=== PATIENT | female | born 1990 | race Caucasian/White ===

== ENCOUNTER → 2019-03-14 | Outpatient (CLI) | payer OTHER ==
[~2019-03-14] MED LIST: CIPRO250 MG PO; FLEXERIL10 MG PO; HYDROCODONE BIT1 T11 PO; IRON325 M1 PO; MOTRIN800 MG PO; PRENATAL1 TA2 PO; SYNTHROID0.137 MG PO; Synthroid,Lev200 MCG PO; VITAMIN C500 M4 PO; VITAMIN D32000 IU PO; VITAMIN D50000 I3 PO; ZYRTEC10 MG PO
[2019-03-14 13:03] LABS: ALBUMIN 3.5 gm/dl (3.1-4.5); BUN 11 mg/dl (7-24); CHLORIDE 107 mmol/L (98-107); CREATININE 0.68 mg/dL (0.55-1.02); FREE T4 1.46 ng/dl (0.76-1.46); IRON 97 ug/dL (50-170); POTASSIUM 3.5 mmol/L (3.5-5.1); SODIUM 141 mmol/L (136-145)
[2019-03-14 13:08] LABS: THYROID STIM HORMONE (HS) 0.213 uIU/ml (0.358-4.75)
[2019-03-15 08:05] LABS: THYROID PEROXIDASE (TPO) AB 8 IU/mL (0-34)
[2019-03-15 14:04] LABS: THYROGLOBULIN ANTIBODY <1.0 IU/mL (0.0-0.9)
== END | disposition home or self-care (01) ==
LOC: LAB 12:07
PROVIDERS: Internal Medicine
DX: E03.9 Hypothyroidism, unspecified (principal); E74.39 Other disorders of intestinal carbohydrate absorption; E55.9 Vitamin D deficiency, unspecified; E61.1 Iron deficiency; C73 Malignant neoplasm of thyroid gland

== ENCOUNTER 2019-03-27 17:06 | Emergency (ER) | payer OTHER ==
[~2019-03-27] VITALS: Ht 160 cm; Wt 78.9 kg
[2019-03-27 17:47] LABS: BASO % 0.5 % (0.0-1.0); EOS # 0.3 10*3/uL (0.0-0.4); EOS % 3.6 % (1.0-4.0); HEMATOCRIT 41.2 % (37.0-47.0); HEMOGLOBIN 13.6 g/dl (12.0-16.0); LYMPH # 2.3 10*3/uL (1.3-4.4); LYMPH % 27.8 % (27.0-41.0); MEAN CELL VOLUME 84.1 fl (81.0-99.0); MEAN CORPUSCULAR HGB 27.8 pg (27.0-31.0); MEAN PLATELET VOLUME 10.4 fl (9.6-12.3); MONO # 0.9 10*3/uL (0.1-1.0); MONO % 10.7 % (3.0-9.0); NEUT # 4.8 10*3/uL (2.3-7.9); NEUT % 57.2 % (47.0-73.0); PLATELET COUNT AUTOMATED 256 10*3/uL (130-400); RED CELL DISTRI WIDTH 13.9 % (0-14.5); WHITE BLOOD COUNT 8.4 10*3/uL (4.8-10.8)
[2019-03-27 18:02] LABS: ALBUMIN 3.4 gm/dl (3.1-4.5); ALKALINE PHOSPHATASE 83 U/L (45-117); BUN 17 mg/dl (7-24); CHLORIDE 109 mmol/L (98-107); CREATININE 0.88 mg/dL (0.55-1.02); LIPASE 203 U/L (73-393); POTASSIUM 3.8 mmol/L (3.5-5.1); SGOT/AST 7 IU/L (3-35); SGPT/ALT 17 U/L (12-78); SODIUM 138 mmol/L (136-145); TOTAL PROTEIN 7.5 gm/dL (6.4-8.2)
[2019-03-27 18:13] LABS: TROPONIN I < 0.015 ng/ml (<0.045)
[2019-03-27 18:20] LABS: ACT PARTIAL THROMBO TIME 25.6 SECONDS (20.0-32.1); INTERNATIONAL NORM RATIO 0.9 (2.0-3.5)
[2019-03-27 18:33] LABS: BILIRUBIN NEGATIVE (NEGATIVE); BLOOD TRACE-INTACT (NEGATIVE); CLARITY CLEAR (CLEAR); COLOR YELLOW (YELLOW); GLUCOSE NEGATIVE (NEGATIVE); KETONE NEGATIVE (NEGATIVE); LEUKO ESTERASE 1+ (NEGATIVE); NITRITE NEGATIVE (NEGATIVE); SPECIFIC GRAVITY 1.025 (1.005-1.030); UROBILINOGEN 0.2 E.U./dl (0.2-1.0)
[2019-03-27 18:45] LABS: BACTERIA 2+
[2019-03-27 18:46] LABS: MUCOUS 1+
[2019-03-27] MEDS ORDERED: CEPHALEXIN500 M1 PO (18:49)
== END 2019-03-27 19:00 | disposition home or self-care (01) ==
LOC: ED 17:06
PROVIDERS: Nurse Practitioner Family
DX: E16.2 Hypoglycemia, unspecified (principal); N39.0 Urinary tract infection, site not specified; R06.02 Shortness of breath; R07.81 Pleurodynia; Z86.718 Personal history of other venous thrombosis and embolism; J45.909 Unspecified asthma, uncomplicated; Z88.2 Allergy status to sulfonamides; Z79.899 Other long term (current) drug therapy

== ENCOUNTER → 2019-05-17 | Outpatient (CLI) | payer OTHER ==
[~2019-05-17] MED LIST changes: +CEPHALEXIN500 M1 PO
[2019-05-17 12:24] LABS: BILIRUBIN NEGATIVE (NEGATIVE); BLOOD TRACE-INTACT (NEGATIVE); CLARITY CLEAR (CLEAR); COLOR YELLOW (YELLOW); GLUCOSE NEGATIVE (NEGATIVE); KETONE NEGATIVE (NEGATIVE); LEUKO ESTERASE NEGATIVE (NEGATIVE); NITRITE NEGATIVE (NEGATIVE); PH 5.5 (5.0-9.0); UROBILINOGEN 0.2 E.U./dl (0.2-1.0)
[2019-05-17 12:31] LABS: BASO % 0.6 % (0.0-1.0); EOS # 0.3 10*3/uL (0.0-0.4); EOS % 3.5 % (1.0-4.0); HEMATOCRIT 44.1 % (37.0-47.0); HEMOGLOBIN 14.3 g/dl (12.0-16.0); LYMPH # 2.2 10*3/uL (1.3-4.4); LYMPH % 31.5 % (27.0-41.0); MEAN CELL VOLUME 85.5 fl (81.0-99.0); MEAN CORPUSCULAR HGB 27.7 pg (27.0-31.0); MEAN CORPUSCULAR HGB CONC 32.4 g/dl (33.0-37.0); MEAN PLATELET VOLUME 10.5 fl (9.6-12.3); MONO # 0.5 10*3/uL (0.1-1.0); MONO % 7.5 % (3.0-9.0); NEUT % 56.6 % (47.0-73.0); PLATELET COUNT AUTOMATED 287 10*3/uL (130-400); RED BLOOD COUNT 5.16 10*6/uL (4.10-5.10); RED CELL DISTRI WIDTH 14.2 % (0-14.5); WHITE BLOOD COUNT 7.1 10*3/uL (4.8-10.8)
[2019-05-17 12:47] LABS: BACTERIA 2+; WBC 0-2 wbc/hpf (0-5)
[2019-05-17 12:57] LABS: ALBUMIN 3.7 gm/dl (3.1-4.5); ALKALINE PHOSPHATASE 86 U/L (45-117); BUN 13 mg/dl (7-24); CHLORIDE 108 mmol/L (98-107); CHOLESTEROL 189 mg/dL (<200); CREATININE 0.74 mg/dL (0.55-1.02); FREE T4 1.39 ng/dl (0.76-1.46); HDL CHOLESTEROL 37 mg/dl (40-60); LDL CHOLESTEROL 131 mg/dL (9-159); POTASSIUM 3.6 mmol/L (3.5-5.1); SGOT/AST 11 IU/L (3-35); SGPT/ALT 20 U/L (12-78); SODIUM 139 mmol/L (136-145); TOTAL PROTEIN 7.8 gm/dL (6.4-8.2); TRIGLYCERIDES 105 mg/dl (<150); VLDL CHOLESTEROL 21 mg/dL (6-40)
[2019-05-19 02:06] LABS: ANTI-THROMBIN III ACTIVITY 100 % (75-135)
== END | disposition home or self-care (01) ==
LOC: LAB 11:49
PROVIDERS: Family Medicine
DX: Z13.220 Encounter for screening for lipoid disorders (principal); Z01.419 Encounter for gynecological examination (general) (routine) without abnormal findings; R35.0 Frequency of micturition; E03.9 Hypothyroidism, unspecified; Z86.718 Personal history of other venous thrombosis and embolism

== ENCOUNTER → 2019-06-05 | Outpatient (CLI) | payer OTHER | END | disposition home or self-care (01) | LOC: LAB 13:05 | DX: E55.9 Vitamin D deficiency, unspecified (principal); Z86.718 Personal history of other venous thrombosis and embolism ==

== ENCOUNTER → 2019-06-13 | Outpatient (CLI) | payer OTHER ==
[2019-06-15 02:05] LABS: DILUTE PROTHROMBIN TIME 47.4 sec (0.0-55.0); DPT CONFIRM RATIO 1.15 Ratio (0.00-1.40); LUPUS DRVVT 41.1 sec (0.0-47.0); LUPUS REFLEX INTERPRETATION Comment: (.); PTT-LA 32.3 sec (0.0-51.9)
== END | disposition home or self-care (01) ==
LOC: LAB 12:34
PROVIDERS: Family Medicine
DX: R35.0 Frequency of micturition (principal); Z86.718 Personal history of other venous thrombosis and embolism

== ENCOUNTER → 2020-02-20 | Outpatient (CLI) | payer OTHER | END | disposition home or self-care (01) | LOC: US 02-05 13:00 | DX: E89.0 Postprocedural hypothyroidism (principal); C73 Malignant neoplasm of thyroid gland ==

== ENCOUNTER 2021-09-29 21:06 | Emergency (ER) | payer OTHER ==
[~2021-09-29] VITALS: Ht 160 cm; Wt 83.9 kg
== END 2021-09-30 00:10 | disposition home or self-care (01) ==
LOC: ED 21:06
DX: M79.605 Pain in left leg (principal); Z88.2 Allergy status to sulfonamides; Z79.899 Other long term (current) drug therapy

== ENCOUNTER → 2023-08-18 | Outpatient (CLI) | payer OTHER ==
[2023-08-18 16:59] LABS: BUN 10 mg/dl (9-23); CHLORIDE 106 mmol/L (98-107); POTASSIUM 3.5 mmol/L (3.4-5.1)
[2023-08-20 05:07] LABS: LUPUS DRVVT 42.8 sec (0.0-47.0); PTT-LA 31.4 sec (0.0-43.5)
[2023-08-20 06:08] LABS: LUPUS REFLEX INTERPRETATION Comment: (.)
[2023-08-21 05:07] LABS: ANTIPHOSPHATIDYLSERINE IGM 20 Units (0-30)
== END | disposition home or self-care (01) ==
LOC: LAB 16:12
PROVIDERS: ATTEND Nurse Practitioner Primary Care
DX: I77.9 Disorder of arteries and arterioles, unspecified (principal); E87.6 Hypokalemia; Z86.718 Personal history of other venous thrombosis and embolism

== ENCOUNTER → 2023-11-12 | Outpatient (CLI) | payer OTHER ==
[2023-11-12 14:11] LABS: FREE T4 1.38 ng/dl (0.89-1.76)
== END | disposition home or self-care (01) ==
LOC: LAB 13:03
PROVIDERS: ATTEND Clinical Nurse Specialist
DX: E89.0 Postprocedural hypothyroidism (principal)

== ENCOUNTER → 2024-04-17 | Outpatient (CLI) | payer OTHER ==
[2024-04-17 13:20] LABS: FREE T4 1.33 ng/dl (0.89-1.76)
[2024-04-18 18:07] LABS: HEPATITIS C QNT HCV Not Detected IU/mL (.)
== END | disposition home or self-care (01) ==
LOC: LAB 12:02
PROVIDERS: Nurse Practitioner Primary Care; ATTEND Clinical Nurse Specialist
DX: E89.0 Postprocedural hypothyroidism (principal); E55.9 Vitamin D deficiency, unspecified; Z85.850 Personal history of malignant neoplasm of thyroid; Z72.51 High risk heterosexual behavior

== ENCOUNTER → 2024-10-16 | Outpatient (CLI) | payer OTHER ==
[2024-10-16 10:57] LABS: FREE T4 1.34 ng/dl (0.89-1.76)
== END | disposition home or self-care (01) ==
LOC: LAB 10:12
PROVIDERS: ATTEND Clinical Nurse Specialist
DX: E89.0 Postprocedural hypothyroidism (principal)